=== PATIENT | female | born 1995 ===

== ENCOUNTER 2018-01-19 15:50 | Emergency (ER) | payer MEDICAID, OTHER ==
[2018-01-19 15:51] VITALS: BMI 27.4
[2018-01-19 16:09] VITALS: RESP 18; TEMP 98.8; O2SAT 99
--- NOTE | 2018-01-19 16:43 | C.PDOC ---
History Of Present Illness 22 yo female w/PMHx of asthma come in for evaluation of frontal headache for past 3 weeks. Pt reports, headache is frontal, intermittent, unable to recall exacerbating factors. Pt admits, was seen at [facility] ED on 01/08/18 due to same complaints when CT head performed with normal results, pt received Rx for pain medication " Im not taking it". Otherwise, pt denies fever, chills, denies worse headache of life, visual changes, focal deficits, neck pain, CP, SOB, dyspnea, abd. pain, V/D, back pain, UTI sx. Ambulate to Ed for evaluation, not in any apparent distress. Records from previous ED visits. Pt was seen at [place] on 01/08/18, CT head w/o contrast results review- james june findings. 12/30/16 pt was also seen at [place] due to same complaints. Time Seen by Provider: 01/19/18 16:26 Chief Complaint (Nursing): Headache History Per: Patient Onset/Duration Of Symptoms: Intermittent Episodes Past Medical History Reviewed: Historical Data, Nursing Documentation, Vital Signs Vital Signs: Last Vital Signs Temp 98.8 F 01/19/18 16:07 Pulse 87 01/19/18 16:07 Resp 18 01/19/18 16:07 BP 105/64 01/19/18 16:07 Pulse Ox 99 01/19/18 16:45 - Medical History PMH: Asthma, Bronchitis Denies: Chronic Kidney Disease Surgical History: No Surg Hx Family History: States: Unknown Family Hx - Social History Hx Tobacco Use: Yes (tobacco) Hx Alcohol Use: Yes (SOCIALLY) Hx Substance Use: Yes (MARIJUANA) - Immunization History Hx Tetanus Toxoid Vaccination: No Hx Influenza Vaccination: No Hx Pneumococcal Vaccination: No Review Of Systems Except As Marked, All Systems Reviewed And Found Negative. Constitutional: Negative for: Fever, Chills Eyes: Negative for: Vision Change, Redness ENT: Negative for: Ear Discharge, Nose Discharge, Nose Congestion, Throat Pain, Throat Swelling Cardiovascular: Negative for: Chest Pain, Palpitations, Edema, Light Headedness Respiratory: Negative for: Cough, Shortness of Breath, Wheezing Gastrointestinal: Negative for: Nausea, Vomiting Genitourinary: Negative for: Dysuria, Incontinence Musculoskeletal: Negative for: Neck Pain, Back Pain Skin: Negative for: Rash Neurological: Positive for: Headache. Negative for: Weakness, Numbness, Altered Mental Status, Dizziness Physical Exam - Physical Exam Appears: Well, Non-toxic, No Acute Distress Skin: Normal Color, Warm, Dry, No Rash Head: Atraumatic, Normacephalic Eye(s): bilateral: PERRL, EOMI Ear(s): Bilateral: Normal Nose: No Flaring, No Discharge Oral Mucosa: Moist, No Drooling Tongue: Normal Appearing Lips: Normal Appearing Throat: No Erythema, Exudate, No Drooling Neck: Trachea Midline, No Midline Cervical Tenderness, No Paracervical Tenderness, No Step Off Deformity, Supple Cardiovascular: Rhythm Regular, No Murmur, No JVD Respiratory: No Decreased Breath Sounds, No Accessory Muscle Use, No Wheezing Gastrointestinal/Abdominal: Soft, No Tenderness, No Distention, No Guarding Extremity: Normal ROM, No Deformity, No Swelling Neurological/Psych: Oriented x3, Normal Speech, Normal Cognition, Normal Cranial Nerves, Normal Motor, Normal Sensation, Normal Reflexes ED Course And Treatment O2 Sat by Pulse Oximetry: 99 Pulse Ox Interpretation: Normal Progress Note: On re-evaluation, pt is afebrile, hemodynamicaly stable. Non- toxic. Tolerate PO well in ED. PulseOx 99% rA. Neck: Supple, (-) meningeal sign. ENT: no acute findings. Lungs: CTA B/L, BS equal B/L. CVS: (+)S1S2, reg. Abd: benign, (-) guarding, (-) rebound. back: (-) CVA tenderness. Neuorlogicaly intact. UA results review- normal. Pt has clinical findings c/w headache r/o migraine. Pt advised. ref. to f/u with PMD, Neuorlogy in 2-3 days for re-eval. return if any new changes. Disposition Counseled Patient/Family Regarding: Studies Performed, Diagnosis, Need For Followup, Rx Given - Disposition Referrals: [facility] [Outside] [facility] [place] [Outside] Violet Hewitt MD [Staff Provider] - Disposition: HOME/ ROUTINE Disposition Time: 17:07 Condition: STABLE Additional Instructions: Follow up with PMD, Neurology in 2-3 days for re-evaluation. Take pain medication as initiated for headache. return to ED if any worsening or new changes. Instructions: Headache, Adult (DC), Migraine Headache (DC) Forms: [employer] (Argentine) - Clinical Impression Clinical Impression: Headache, Migraine
[2018-01-19 17:02] LABS: SQUAMOUS EPITHIAL 3 /hpf (0-5); URINE BACTERIA OCC (<OCC); URINE BILIRUBIN NEGATIVE (NEGATIVE); URINE BLOOD 1+ (NEGATIVE); URINE CLARITY Clear (Clear); URINE COLOR Yellow (YELLOW); URINE GLUCOSE (UA) NORMAL (Normal); URINE LEUKOCYTE ESTERASE NEG Leu/uL (Negative); URINE PROTEIN NEGATIVE (NEGATIVE); URINE UROBILINOGEN NORMAL mg/dL (0.2-1.0)
[2018-01-19 17:26] VITALS: BP 127/69; PULSE 68
== END 2018-01-19 17:26 | disposition home or self-care (01) ==
LOC: C.ER 15:50
DX: G43.909 Migraine, unspecified, not intractable, without status migrainosus (principal)

== ENCOUNTER 2018-01-28 16:46 | Emergency (ER) | payer MEDICAID ==
[2018-01-28 16:46] VITALS: BMI 27.4
[2018-01-28 16:56] VITALS: BP 105/67; PULSE 82; RESP 20; TEMP 97.7; O2SAT 99
[2018-01-28 17:43] LABS: HCG,QUALITATIVE URINE POSITIVE (NEGATIVE)
[2018-01-28 17:47] LABS: SQUAMOUS EPITHIAL 1 /hpf (0-5); URINE BACTERIA RARE (<OCC); URINE BILIRUBIN NEGATIVE (NEGATIVE); URINE BLOOD NEGATIVE (NEGATIVE); URINE CLARITY Clear (Clear); URINE COLOR Straw (YELLOW); URINE GLUCOSE (UA) NORMAL (Normal); URINE LEUKOCYTE ESTERASE NEG Leu/uL (Negative); URINE PROTEIN NEGATIVE (NEGATIVE); URINE UROBILINOGEN NORMAL mg/dL (0.2-1.0)
--- NOTE | 2018-01-28 17:56 | C.PDOC ---
History Of Present Illness 22-year-old female, presents to the emergency department, stating she had positive test at home. Patient states she has been experiencing three week duration of crampy abdominal pain. She denies any vaginal bleeding or discharge. Pt is A1. LMP "end of December" Time Seen by Provider: 01/28/18 17:22 Chief Complaint (Nursing): Abdominal Pain History Per: Patient History/Exam Limitations: no limitations Past Medical History Reviewed: Historical Data, Nursing Documentation, Vital Signs Vital Signs: Last Vital Signs Temp 97.7 F 01/28/18 16:53 Pulse 82 01/28/18 16:53 Resp 20 01/28/18 16:53 BP 105/67 01/28/18 16:53 Pulse Ox 99 01/28/18 19:33 - Medical History PMH: Asthma, Bronchitis Denies: Chronic Kidney Disease Family History: States: No Known Family Hx - Social History Hx Tobacco Use: Yes (tobacco) Hx Alcohol Use: Yes (SOCIALLY) Hx Substance Use: Yes (MARIJUANA) - Immunization History Hx Tetanus Toxoid Vaccination: No Hx Influenza Vaccination: No Hx Pneumococcal Vaccination: No Review Of Systems Constitutional: Negative for: Fever, Chills Gastrointestinal: Positive for: Abdominal Pain. Negative for: Nausea, Vomiting Genitourinary: Negative for: Dysuria, Hematuria, Vaginal Discharge, Vaginal Bleeding Musculoskeletal: Negative for: Back Pain Physical Exam - Physical Exam Appears: Well, Non-toxic, No Acute Distress Skin: Normal Color, Warm, Dry, No Rash Head: Normacephalic Eye(s): bilateral: PERRL Nose: Normal Oral Mucosa: Moist Lips: Normal Appearing Neck: Normal ROM Cardiovascular: Rhythm Regular, No Murmur Respiratory: Normal Breath Sounds, No Accessory Muscle Use Gastrointestinal/Abdominal: Soft, No Tenderness, No Guarding, No Rebound Extremity: Normal ROM, No Deformity, No Swelling Neurological/Psych: Oriented x3, Normal Speech ED Course And Treatment - Laboratory Results Result Diagrams: 01/28/18 17:55 01/28/18 17:55 Lab Interpretation: No Acute Changes O2 Sat by Pulse Oximetry: 99 (RA) Pulse Ox Interpretation: Normal - CT Scan/US US Other Rad Studies (CT/US): Read By Radiologist, Radiology Report Reviewed CT/US Interpretation: EXAM: US First Trimester, Transabdominal. US , Transvaginal. CLINICAL HISTORY: 22 years old, female; Pain; complicated by abdominal or pelvic pain; Lower; First. trimester; Gestational age or lmp: Unknown; ; Patient HX: Beta = 2172.50; Additional info: Pelvic pain, , poss ectopic. TECHNIQUE: Real-time transabdominal and transvaginal obstetrical ultrasound of the maternal pelvis and a first. trimester with image documentation. Transvaginal imaging was used for better evaluation. of the fetus and adnexa. COMPARISON: No relevant prior studies available. FINDINGS: Gestation: Probable gestational sac. No yolk sac. No pole. Mean sac diameter of 0.6 cm, out. of range. Uterus/cervix: No subchorionic hemorrhage. No cervical dilatation or effacement. Ovaries: RIGHT ovary: 1.5 x 1.2 x 1.3 cm anechoic lesion. LEFT ovary: Normal. No adnexal. masses. Free fluid: Small free fluid within pelvis. IMPRESSION: 1. Probable intrauterine , of uncertain viability. Recommend followup. 2. RIGHT ovarian cyst. Thank you for allowing us to participate in the care of your patient. Dictated and Authenticated by: Jewel Villa MD. 01/28/2018 7:26 PM Eastern Time ([place] & [place]) Medical Decision Making Medical Decision Making: Impression: with abd pain x3 weeks Plan: * Labs * U preg * US OB Progress: Urine showed + and no UTI. Orders placed for labs and US. Labs reviewed and unremarkable. US shows probable intrauterine , of uncertain viability. Recommend followup. RIGHT ovarian cyst. Reassess: Patient sitting comfortably in no distress. I discussed results with patient, and copy of report was provided. 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 Patient feels comfortable going home and will be discharged. Instructed to return to ER if symptoms worsen or new symptoms arise. Disposition Counseled Patient/Family Regarding: Diagnosis, Need For Followup - Disposition Referrals: [facility] [Outside] [facility] [Outside] [facility] [Outside] Disposition: HOME/ ROUTINE Disposition Time: 20:00 Condition: GOOD Additional Instructions: A copy of your labs and ultrasound was provided to you, it is important that you follow up with sawmill equipment operator for further evaluation and care Instructions: - The First Month Forms: [employer] (Burkinan) - POA Present On Arrival: None - Clinical Impression Clinical Impression: Positive test, Abdominal pain during - Scribe Statement The provider has reviewed the documentation as recorded by the Scribe (Nina Kirk) All medical record entries made by the Scribe were at my direction and personally dictated by me. I have reviewed the chart and agree that the record accurately reflects my personal performance of the history, physical exam, medical decision making, and the department course for this patient. I have also personally directed, reviewed, and agree with the discharge instructions and disposition.
[2018-01-28 17:58] LABS: BASO % 0.6 % (0.0-2.0); EOS # 0.1 K/uL (0.0-0.7); EOS % 1.2 % (0.0-4.0); HEMOGLOBIN 12.4 g/dL (11.0-16.0); LYMPH # 1.8 K/uL (1.0-4.3); LYMPH % 22.4 % (20.0-40.0); MEAN CORPUSCULAR HEMOGLOBIN 31.2 pg (27.0-31.0); MEAN CORPUSCULAR HGB CONC 33.5 g/dL (33.0-37.0); MEAN PLATELET VOLUME 8.1 fL (7.2-11.7); MONO # 0.5 K/uL (0.0-0.8); MONO % 5.9 % (0.0-10.0); NEUT # 5.5 K/uL (1.8-7.0); NEUT % 69.9 % (50.0-75.0); NRBC % 0.1 % (0.0-2.0); RBC 3.98 Mil/uL (3.80-5.20); RED CELL DISTRIBUTION WIDTH 12.5 % (11.5-14.5); WHITE BLOOD COUNT 7.8 K/uL (4.8-10.8)
[2018-01-28 18:00] LABS: MEAN CELL VOLUME 93.3 fL (81.0-99.0)
[2018-01-28 18:12] LABS: ALB/GLOB RATIO 1.2 (1.0-2.1); ALBUMIN 4.1 g/dL (3.5-5.0); ALT/SGPT 15 U/L (9-52); AST/SGOT 22 U/L (14-36); BLOOD UREA NITROGEN 10 mg/dL (7-17); CALCIUM 8.7 mg/dl (8.6-10.4); GFR AFRICAN-AMERICAN > 60; GFR NON-AFRICAN AMERICAN > 60
--- NOTE | 2018-01-28 19:26 | US ---
EXAM: US First Trimester, Transabdominal US , Transvaginal CLINICAL HISTORY: 22 years old, female; Pain; complicated by abdominal or pelvic pain; Lower; First trimester; Gestational age or lmp: Unknown; ; Patient HX: Beta = 2172.50; Additional info: Pelvic pain, , poss ectopic TECHNIQUE: Real-time transabdominal and transvaginal obstetrical ultrasound of the maternal pelvis and a first trimester with image documentation. Transvaginal imaging was used for better evaluation of the fetus and adnexa. COMPARISON: No relevant prior studies available. FINDINGS: Gestation: Probable gestational sac. No yolk sac. No pole. Mean sac diameter of 0.6 cm, out of range. Uterus/cervix: No subchorionic hemorrhage. No cervical dilatation or effacement. Ovaries: RIGHT ovary: 1.5 x 1.2 x 1.3 cm anechoic lesion. LEFT ovary: Normal. No adnexal masses. Free fluid: Small free fluid within pelvis. IMPRESSION: 1. Probable intrauterine , of uncertain viability. Recommend followup. 2. RIGHT ovarian cyst.
== END 2018-01-28 20:07 | disposition home or self-care (01) ==
LOC: C.ER 16:46
DX: O26.891 Other specified pregnancy related conditions, first trimester (principal); R10.9 Unspecified abdominal pain; Z3A.00 Weeks of gestation of pregnancy not specified